=== PATIENT | female | born 2000 | race Caucasian/White ===

== ENCOUNTER 2021-09-15 16:02 | Emergency (ER) | payer SELFPAY ==
[~2021-09-15] VITALS: Ht 154.9 cm; Wt 68.2 kg
[2021-09-15] MEDS ORDERED: NYSTATIN OR100 MU/ML PO (17:07)
[2021-09-15 17:30] VITALS: BP 110/62; PULSE 88; TEMP 97.1
[2021-09-15 17:54] LABS: HIV 1/2 Antibodies Non-Reactive; HIV-1p24 Antigen Non-Reactive
== END 2021-09-15 17:30 | disposition home or self-care (01) ==
LOC: COL.ER 16:02
PROVIDERS: Emergency Medicine
DX: B37.9 Candidiasis, unspecified (principal)

== ENCOUNTER 2022-06-04 17:25 | Emergency (ER) | payer SELFPAY ==
[~2022-06-04] VITALS: Ht 154.9 cm; Wt 59.1 kg
[~2022-06-04 17:25] MED LIST: NYSTATIN OR100 MU/ML PO
[2022-06-04 17:50] LABS: HEMATOCRIT 39.8 % (37.0-47.0); HEMOGLOBIN 14.2 g/dl (12.5-16.0); MEAN CELL VOLUME 87 fl (80.0-100.0); MEAN CORPUSCULAR HEMOGLOBIN 31 pg (27-31); MEAN CORPUSCULAR HGB CONC 36 g/dl (33.0-37.0); MEAN PLATELET VOLUME 8.6 fl (7.4-10.4); PLATELET COUNT 248 K/mm3 (130-400); RED BLOOD COUNT 4.56 M/mm3 (4.10-5.30); REDCELL DISTRIBUTION WIDTH-CV 12.1 % (11.5-14.5)
[2022-06-04 18:10] LABS: ALBUMIN 3.5 gm/dL (3.5-5.0); BILIRUBIN,TOTAL 0.3 mg/dL (0.2-1.2); C-REACTIVE PROTEIN 0.26 mg/dL (0.00-0.50); CALCIUM 8.8 mg/dL (8.4-10.2); CREATININE, serum 0.76 mg/dL (0.57-1.11); POTASSIUM 4.1 mmol/L (3.5-4.5); TOTAL PROTEIN 6.6 gm/dL (6.2-8.1)
[2022-06-04 18:18] LABS: COLLECTION METHOD CLEAN CATCH
[2022-06-04 18:30] LABS: BAND 5 % (0-10); EOSINOPHIL 2 % (0-4); LYMPHOCYTE 48 % (20.0-51.0); METAMYELOCYTE 1 % (0-0); NEUTROPHILS 30 % (42.0-75.2); PLATELET ESTIMATE NORMAL (NORMAL)
[2022-06-04 18:32] LABS: MUCOUS Present (NOT PRESENT); PH 5 (5-8); URINE APPEARANCE Cloudy (CLEAR/HAZY); URINE BACTERIA None Seen /hpf (NONE SEEN); URINE BILIRUBIN Negative (NEGATIVE); URINE BLOOD 3+ (NEGATIVE); URINE COLOR Yellow (YELLOW); URINE GLUCOSE Negative (NEGATIVE); URINE KETONE Negative (NEGATIVE); URINE LEUKOCYTE ESTERASE 2+ (NEGATIVE); URINE NITRATE Negative (NEGATIVE); URINE PROTEIN(semi-quant) 1+ (NEGATIVE); URINE UROBILINOGEN Negative (NEGATIVE)
[2022-06-04] MEDS ORDERED: OMNICEF 300MG300 MG PO (19:59)
[2022-06-04 20:54] VITALS: BP 138/81; PULSE 94; TEMP 98.2
[2022-06-05] MEDS ORDERED: MACROBID 1100 MG/CAP PO (14:55)
== END 2022-06-04 20:54 | disposition home or self-care (01) ==
LOC: COL.ER 17:25
PROVIDERS: Family Medicine
DX: N83.201 Unspecified ovarian cyst, right side (principal); N39.0 Urinary tract infection, site not specified; Z88.0 Allergy status to penicillin; Z88.1 Allergy status to other antibiotic agents; Z88.2 Allergy status to sulfonamides; Z32.02 Encounter for pregnancy test, result negative; Z28.310 Unvaccinated for COVID-19
CPT/HCPCS: J0780; J7120; Q9967

== ENCOUNTER → 2022-06-05 | Outpatient (CLI) | payer SELFPAY ==
[~2022-06-05] VITALS: Ht 154.9 cm; Wt 59.1 kg
[~2022-06-05] MED LIST changes: +MACROBID 1100 MG/CAP PO; +OMNICEF 300MG300 MG PO; +ZOFRAN ODT4 MG PO
[2022-06-05 15:41] VITALS: BP 112/78; PULSE 95; TEMP 98.2
== END ==
LOC: EUO 15:15
DX: Z79.899 Other long term (current) drug therapy (principal)
CPT/HCPCS: J0696